=== PATIENT | male | born 1980 | race Caucasian/White ===

== ENCOUNTER → 2019-04-12 09:46 | Outpatient (CLI) | payer OTHER, SELFPAY ==
--- NOTE | ~2019-04-12 | MR_ITS ---
EXAMINATION: MR knee RT wo con DATE: 04/12/2019 10:23 INDICATION: Anterior cruciate ligament sprain presenting with 10 days of generalized right knee pain, stiffness and instability. TECHNIQUE: Magnetic resonance imaging (MRI) of the right knee was performed without intravenous contr ast. Sequences included coronal PD-weighted FSE, coronal PD-weighted FS FSE, sagittal T2-weighted FS E, sagittal PD-weighted FS FSE and axial PD weighted fat saturated FSE. COMPARISON: None. FINDINGS: Medial compartment: Medial meniscus is normal. Articular cartilage is normal. Lateral compartment: Lateral meniscus is normal. Partial-thickness cartilage loss with relatively smooth chondral surface along the medial and lateral aspects of the posterior weightbearing lateral femoral condyle. Patellofemoral compartment: Normal region of chondral swelling and partial-thickness fissuring without degenerative subarticular changes at the central aspect of the medial patellar facet. Partial-thickness chondral flap involving up to 50% the cartilage thickness and extending approximately 7-8 mm medially from the lateral jd n of the lateral patellar facet. Trochlear cartilage is normal. Ligaments and tendons: Anterior and posterior cruciate ligaments are normal. The medial collateral ligament and fibular wenceslao ateral ligament complex are normal. Mild distal quadriceps tendinopathy. Mild to moderate patellar te ndinopathy with intrasubstance ganglion cyst in the distal tendon extending 1.7 cm proximal to distal and measuring up to 5 x 4 mm in maximal transaxial dimensions. The visualized medial and lateral ham string tendons as well as the iliotibial band are normal. Fluid: Large right knee joint effusion with mild synovitis at the periphery of the suprapatellar pouch. Ther e is a medial plical band which extends to the medial rim of the medial trochlea. No loose osteochond ral bodies identified. There is prominent subcutaneous edema anterior to the knee. Osseous/other: Normal marrow signal. There are 4 small low signal intensity bone islands in the lateral femoral cond yle. No fracture or pathologic marrow replacing process. IMPRESSION: 1. 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 2. Partial-thickness cartilage loss with smooth chondral surface along the posterior weightbearing la teral femoral condyle. 3. Mild to moderate patellar tendinopathy with intrasubstance ganglion cyst within the distal tendon. 4. Large right knee joint effusion. 5. Normal menisci and stabilizing ligaments of the knee. Reviewed, dictated and finalized at location A. [employer] IMPRESSION: 1. 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 2. Partial-thickness cartilage loss with smooth chondral surface along the post erior weightbearing lateral femoral condyle. 3. Mild to moderate patellar tendinopathy with intrasubstance ganglion cyst wit hin the distal tendon. 4. Large right knee joint effusion. 5. Normal menisci and stabilizing ligaments of the knee.
== END ==
PROVIDERS: PCP Family Medicine
DX: S83.511A Sprain of anterior cruciate ligament of right knee, initial encounter (principal); M25.461 Effusion, right knee; M22.41 Chondromalacia patellae, right knee; M76.51 Patellar tendinitis, right knee
CPT/HCPCS: 73721

== ENCOUNTER 2020-04-21 10:16 | Outpatient (CLI) | payer OTHER, SELFPAY | END 2020-04-21 10:17 | disposition home or self-care (01) | LOC: ANHCOVIDVC 10:16 | PROVIDERS: PCP Family Medicine | DX: Z23 Encounter for immunization (principal) | CPT/HCPCS: 0001A; 91300 ==

== ENCOUNTER 2020-05-12 10:16 | Outpatient (CLI) | payer OTHER, SELFPAY | END 2020-05-12 10:17 | disposition home or self-care (01) | LOC: ANHCOVIDVC 10:16 | PROVIDERS: PCP Family Medicine | DX: Z23 Encounter for immunization (principal) | CPT/HCPCS: 0002A; 91300 ==

== ENCOUNTER 2020-10-04 09:40 | Emergency (ER) | payer OTHER, SELFPAY ==
--- NOTE | ~2020-10-04 | CT_ITS ---
EXAMINATION: CT abdomen pelvis w con DATE: 10/04/2020 11:23 INDICATION: Left lower abdominal pain TECHNIQUE: Computed tomography (CT) of the abdomen and pelvis was performed with 100 mL Omnipaque-350 intravenous contrast. Automated exposure control and iterative reconstruction technique were employe d. The dose-length product was 848.54 mGy-cm. COMPARISON: 11/05/2017 FINDINGS: Lung bases are clear. Heart size is normal. No pericardial or pleural effusion. Small sliding-type hi atal hernia. A few small gallstones within the decompressed gallbladder with no wall thickening or pe richolecystic inflammatory change to suggest acute cholecystitis. Liver, pancreas, bilateral adrenal glands and kidneys are normal. No significant change in an approximately 1 cm enhancing splenic lesio n most likely benign hemangioma. There are few scattered colonic diverticula. There is prominent wall thickening and inflammatory stranding centered around a diverticulum at the mid descending colon con sistent with diverticulitis. There is additional wall thickening at the proximal sigmoid colon where there are couple very small loculated fluid collections along the wall of the colon. No drainable abs cess or free intraperitoneal gas. Small bowel and appendix are normal. Mild scattered mesenteric antoine a. Bladder and prostate are normal. No pathologically enlarged abdominal or pelvic lymphadenopathy. B ones are unremarkable. IMPRESSION: 1. Diverticulitis along the mid descending and possibly also at the proximal sigmoid colon. 2. Cholelithiasis. Reviewed, dictated and finalized at location A. IMPRESSION: 1. Diverticulitis along the mid descending and possibly also at the proximal si gmoid colon. 2. Cholelithiasis.
[2020-10-04 09:51] VITALS: BP 144/88; PULSE 109; RESP 18; TEMP 36.7; O2SAT 98
[2020-10-04 10:12] LABS: Basophils Absolute Auto 0.1 K/mm3 (0.0-0.1); Basophils Percent Auto 0.5 % (0.2-1.2); Eosinophils Absolute Auto 0.1 K/mm3 (0-0.3); Eosinophils Percent Auto 0.5 % (0-4.4); Immature Granulocyte Absolute 0.03 K/mm3 (0.00-0.031); Immature Granulocyte Percent A 0.2 % (0-0.5); Lymphocytes Absolute Auto 1.79 K/mm3 (0.9-3.2); Lymphocytes Percent Auto 13.6 % (18.3-44.2); Mean Corpuscular HGB Conc 34.1 g/dl (32-36); Mean Corpuscular Hemoglobin 30.5 pg (26-34); Mean Corpuscular Volume 89.4 fl (80-100); Mean Platelet Volume 9.7 fl (7.4-10.4); Monocytes Absolute Auto 1.2 K/mm3 (0.1-0.6); Monocytes Percent Auto 8.8 % (2.6-8.5); Neutrophils Percent Auto 76.4 % (45.5-73.1); Platelet Count Result 254 k/mm3 (150-375); Red Blood Count 4.92 M/mm3 (4.6-6.20); Red Cell Distribution Width 12.7 % (11.5-14.5); White Blood Count 13.1 K/mm3 (4.5-10.0)
[2020-10-04 10:26] LABS: Albumin Level 4.5 g/dL (3.5-5.1); Alkaline Phosphatase 59 U/L (38-126); Anion Gap 10 mmol/L (8-16); Aspartate Amino Transferase 24 U/L (17-59); Bilirubin,Total 1.5 mg/dL (0.2-1.3); Blood Urea Nitrogen 11 mg/dL (9-20); Calcium 9.5 mg/dL (8.4-10.2); Carbon Dioxide 22 mmol/L (22-30); Chloride 105 mmol/L (98-107); Estimated CRCL calculation 115 ml/min; Estimated Glomerular Filt Rate > 60; Glucose 129 mg/dL (65-110); Lipase 44 U/L (23-300); Potassium 3.6 mmol/L (3.4-5.0); Sodium 137 mmol/L (137-145)
[2020-10-04 10:33] VITALS: BP 130/83; PULSE 93; RESP 18; O2SAT 98
[2020-10-04 10:39] LABS: Alanine Aminotransferase 25 U/L (4-50)
--- NOTE | 2020-10-04 10:52 | ED.ABDPAIN ---
HPI - Abdominal Pain General Chief Complaint: Abdominal Pain Stated Complaint: abd pain Time Seen by Provider: 10/04/20 10:23 Source: patient and RN notes reviewed Mode of arrival: ambulatory Limitations: no limitations History of Present Illness HPI narrative: This is a 39 year old male who presents for evaluation of left side abdominal pain. Patient states he developed suprapubic pain a few days ago. His pain has been constant and it has gradually migrated to his left upper flank . He reports his pain is worse with eating so he has not eaten much over the past 2 days. He denies nausea, vomiting. He reports having diarrhea yesterday. He also reports tmax yesterday was 99F. He has reports history of diverticulitis, and his last bout was 2 years ago. He states his pain has resolved currently. Related Data Home Medications Medication Instructions Recorded Confirmed escitalopram oxalate 10 mg PO DAILY 10/04/20 10/04/20 Allergies Allergy/AdvReac Type Severity Reaction Status Date / Time allopurinol Allergy Unknown Rash Verified 10/04/20 10:29 Review of Systems Review of Systems: All systems reviewed & are unremarkable except as noted in HPI and below PMFSH Past Medical History Medical History Diverticulitis Family History Family History (Updated 04/04/17 @ 08:36 by DOCTOR UNKNOWN) Grandparent Diabetes mellitus Family history of gout Family history of cardiovascular disease Cerebrovascular accident Father Hypertension Mother Hypertension Social History Social History Smoking status: Former smoker Smoking end date: 02/17/11 Alcohol intake: current Exam Const: General: no acute distress and alert Orientation/consciousness: patient oriented x3 Eyes: EOM: EOMs intact bilaterally Resp: Effort & Inspection: normal respiratory effort and no retractions Auscultation: clear to auscultation bilaterally Cardio: Rate: regular rate Rhythm: regular rhythm Heart sounds: no murmurs GI: GI Palp: Yes Soft to palpation, No Tenderness to palpation present (GI) and No Guarding due to palpation present (GI) Auscultation: normal bowel sounds Skin: General skin exam: normal color Rashes: no rashes Neuro: General: patient oriented x3, moves all extremities and CN's II-XI intact bilaterally Psych: Mental Status: mental status grossly normal Affect: normal affect Course Reevaluation(s) Reevaluation #1: Patient is resting comfortably. I discussed CT findings of nondrainable fluid collections. He has no pain or tenderness currently. He is agreeable to discharge plan. He was given precautions and when to return. He denies any questions or concerns. Date: 10/04/20 Time: 14:24 Consultations Consultation #1: I discussed case and CT with DR. Mckenzie. He agrees patient can be discharged after receiving IV antibiotics. PAtient should be discharged with 1 week of arlet and alexander. He would like to see patient in 2 weeks. Date: 10/04/20 Time: 14:23 Vital Signs Vital signs: Vital Signs Temperature 98.0 F 10/04/20 09:51 Pulse Rate 109 H 10/04/20 09:51 Respiratory Rate 18 10/04/20 09:51 Blood Pressure 144/88 H 10/04/20 09:51 Pulse Oximetry 98 10/04/20 09:51 Temperature 98.0 F 10/04/20 09:51 Pulse Rate 81 10/04/20 14:30 Respiratory Rate 18 10/04/20 14:30 Blood Pressure 111/62 10/04/20 14:30 Pulse Oximetry 99 10/04/20 14:30 MDM - Abdominal Pain Lab Data Attestation: I reviewed the patient's lab results. Result diagrams: 10/04/20 10:04 10/04/20 10:04 Labs: Lab Results 10/04/20 10/04/20 10/04/20 Range/Units 10:04 10:04 10:43 WBC 13.1 H (4.5-10.0) K/mm3 RBC 4.92 (4.6-6.20) M/mm3 Hgb 15.0 (14.0-18.0) g/dL Hct 44.0 (42.0-52.0) % MCV 89.4 (80-100) fl MCH 30.5 (26-34) pg MCHC 34.1 (32-36) g/dl RDW 12.7 (11.5-14.5) % Plt
[2020-10-04 10:56] LABS: Add Urine Microscopic? YES; Appearance Urine Clear (Clear); Bilirubin Urine Negative (Negative); Blood Urine 3+ (Negative); Color Urine Amber (Yellow); Glucose Urine UA Negative (Negative); Ketones Urine Negative (Negative); Leukocyte Esterase Ur Negative LEU/UL (Negative); Mucus Urine Rare /lpf; Nitrate Urine Negative (Negative); Protein Urine 1+ mg/dL (Negative); Specific Grav Ur 1.025 (1.001-1.035); Urobilinogen Urine Negative mg/dL (<2.0); WBC Urine 0-3 /hpf
[2020-10-04] MEDS: SODIUM CHLORIDE 0.9% IV 1,000 ML 999 ML IV CONT (11:05)
[2020-10-04 12:45] VITALS: BP 124/81; PULSE 83; RESP 18; O2SAT 100
[2020-10-04] MEDS: metroNIDAZOLE 500 MG/ISO 100ML 500 MG/100 ML BAG 100 MG IVPB (13:25)
[2020-10-04 13:28] VITALS: BP 135/86; PULSE 85; RESP 18; O2SAT 100
[2020-10-04 14:30] VITALS: BP 111/62; PULSE 81; RESP 18; O2SAT 99
== END 2020-10-04 14:49 | disposition home or self-care (01) ==
PROVIDERS: Emergency Provider General Practice; PCP Family Medicine
DX: K57.20 Diverticulitis of large intestine with perforation and abscess without bleeding (principal); Z87.891 Personal history of nicotine dependence; K80.20 Calculus of gallbladder without cholecystitis without obstruction
CPT/HCPCS: 36415; 74177; 80053; 81001; 83690; 85025; 96361; 96365; 96367; 99284; J0696; J7030; Q9967